=== PATIENT | female | born 1980 | race Caucasian/White ===

== ENCOUNTER 2017-04-02 16:08 | Emergency (ER) | payer OTHER ==
[~2017-04-02] VITALS: Ht 170.2 cm; Wt 104.3 kg
--- NOTE | ~2017-04-02 | CR72 ---
[facility]. [facility] A Service of [facility] & [facility] RADIOLOGY TEXT RESULTS PATIENT: YUNIEL BARROS LOCATION: SED : 82 UNIT #: [id number] AGE: [address]: EDWIN NOLAND SEX: F ORDER DR: [id number] [place] [id number] E MR#: [id number] Acc #: [id number] NAME: YUNIEL BARROS : 1980 SEX: F STUDY DATE/TIME: 04/02/2017 16:52 UNIT: SED ROOM: STUDY DESCRIPTION: CR Chest Single View Portable Attending Physician: Edwin Noland Aprn Ordering Physician: Edwin Noland Aprn Primary Care Physician: Nurys Jane M.D. MEDICAL IMAGING REPORT This report is preliminary unless electronic signature is present. EXAM Frontal chest 04/02/2017 INDICATION 37-year-old female with a cough, congestion and shortness of air for 2 weeks. Hypertension. TECHNIQUE Frontal chest compared with 04/19/2016. FINDINGS Cardiac silhouette unremarkable. The vascularity is normal. Lungs are clear. Calcified granulomas are present. IMPRESSION Negative chest. Dictated by... Rayray Matthews M.D. THIS IS AN ELECTRONICALLY VERIFIED REPORT Rayray Matthews M.D. at 04/03/2017 11:24 PM KYRA/olaf TD: 04/03/2017 08:13 JOB #: [id number] MEDICAL IMAGING REPORT Page 1 of 1
[~2017-04-02 16:08] MED LIST: ALBUTEROL17 GM INH; ATIVAN PO; BACTRIM DS TABL1 TA2 PO; BACTRIM DS TABL1 TAB PO; BUSPAR PO; CIPRO PO; DEPAKOTE PO; DICLOFENAC PO; FLEXERIL PO; FLEXERIL10 MG PO; GEODAN PO; HALDOL PO; HCTZ PO; IBUPROFEN600 MG PO; IBUPROFEN800 MG PO; LAMICTAL PO; MEDROL DOSEPAK4 MG PO; MEDROL PO; NO MEDICATIONS; NORCO 5/325 TAB1 TAB PO; PROPRANOLOL; PROPRANOLOL PO; PROZAC PO; PYRIDIUM PO; TALWIN NX TABLE1 TAB PO; TOPAMAX PO; TRAZODONE PO; ULTRAM PO; VICODIN 5/1 TAB 5/50 PO; VICODIN 5/500 T1 TAB PO; ZOLOFT PO; [UNRECOGNIZED DRUG - OTHER]
[2017-04-02] MEDS ORDERED: LOPRESSOR (16:25)
== END 2017-04-02 18:10 | disposition home or self-care (01) ==
LOC: SED 16:08
DX: J06.9 Acute upper respiratory infection, unspecified (principal); R07.9 Chest pain, unspecified; F17.210 Nicotine dependence, cigarettes, uncomplicated; Z90.49 Acquired absence of other specified parts of digestive tract; Z88.8 Allergy status to other drugs, medicaments and biological substances
CPT/HCPCS: 71010; 99284